=== PATIENT | male | born 1975 | race Hispanic/Latino ===

== ENCOUNTER 2024-04-18 23:05 | Emergency (ER) | payer SELFPAY ==
[2024-04-18] MEDS ORDERED: ONDANSETRON 4 MG/2 ML VIAL ONE (23:33)
[2024-04-18] MEDS ORDERED: METOCLOPRAMIDE 10 MG/2mL INJ ONE (23:34)
[2024-04-18] MEDS ORDERED: MORPHINE 4 MG/ML SYR ONE (23:34)
[2024-04-18] MEDS ORDERED: NA CHLORIDE 0.9% 2,000 ML ONE (23:34)
[2024-04-19 00:01] LABS: Absolute Eosinophils 0.1 K/uL (0-0.5); Absolute Lymphocytes (CBC) 1.9 K/uL (0.7-4.9); Absolute Monocytes 0.4 K/uL (0.1-1.3); Basophils % 0.5 % (0-1.3); Eosinophils % 1.2 % (0-4.4); Hematocrit 41.3 % (39.6-49.0); Hemoglobin 13.8 g/dL (13.6-17.9); Lymphocytes % 43.1 % (15.3-44.8); MCH 30.7 pg (27.0-35.0); MCHC 33.3 g/dL (32.0-36.0); MCV 92.2 fL (80-100); MPV 8.9 fL (7.6-11.3); Monocytes % 8.3 % (3.3-12.3); Neutrophils % 46.9 % (41.7-73.7); Platelets 167 thou/uL (152-406); RBC Red Blood Cell Count 4.48 M/uL (4.33-5.43); Red Cell Distribution Width 13.6 % (12.1-15.2)
[2024-04-19 00:18] LABS: Albumin 3.9 g/dL (3.4-5.0); Albumin/Globulin Ratio 1.2 (1.1-1.8); Anion Gap 4.6 mEq/L (5.0-15.0); Bilirubin Total 0.4 mg/dL (0.2-1.0); Globulin 3.3 g/dL (2.3-3.5); Potassium 3.6 mEq/L (3.5-5.1); Protein, Total 7.2 g/dL (6.4-8.2)
[2024-04-19 00:21] LABS: Troponin High Sensitivity 3.6 pg/mL (<58.9)
[2024-04-19 00:49] LABS: Barbiturates NEGATIVE (NEGATIVE); Benzodiazepines NEGATIVE (NEGATIVE); Cocaine NEGATIVE (NEGATIVE); METHAMPHETAM NEGATIVE (NEGATIVE); Methadone NEGATIVE (NEGATIVE); Opiates NEGATIVE (NEGATIVE); Phencyclidine NEGATIVE (NEGATIVE); Specific Gravity 1.006 (1.005-1.030); Sqamous Epithelial None Seen /HPF (None Seen); THC Cannibis NEGATIVE (NEGATIVE); Urine Bacteria None Seen /HPF (<20); Urine Bilirubin NEGATIVE (Negative); Urine Blood Negative (Negative); Urine Clarity Clear (Clear); Urine Color Colorless (Yellow); Urine Crystals Unidentified Few /HPF (None Seen); Urine Culture Reflex Order NOT NEEDED; Urine Glucose NEGATIVE (Negative); Urine Ketones NEGATIVE (Negative); Urine Microscopic Reflex YN ORDER UMIC; Urine Nitrite NEGATIVE (Negative); Urine Protein NEGATIVE (Negative); Urine RBC <5 /HPF (None Seen); Urine Urobilinogen Normal (Normal); Urine WBC None Seen /HPF (<5); Urine pH 7.5 (5.0-7.0)
[2024-04-19 01:11] LABS: SARS-CoV-2 Antigen CONTROL BLUE LINE VIS/BG OK; SARS-CoV-2 Antigen Rapid Res Negative (Negative)
[2024-04-19] MEDS ORDERED: BISACODYL E.C. 5 MG TAB PO ONE (02:48)
[2024-04-19] MEDS ORDERED: AZITHROMYCIN 250 MG TAB ONE (02:48)
--- NOTE | 2024-04-19 03:17 | EDPHYS ---
Physician Documentation [facility] Name: Atul Medrano Age: 48 yrs Sex: Male : 1975 Arrival Date: 04/18/2024 Time: 23:05 Bed 5 Private MD: ED Physician Alejo Allen HPI: 04/18 23:10 This 48 yrs old Male presents to ER via Unassigned with complaints of sp4 Abdominal Pain, Nausea/Vomiting. 04/19 06:07 This patient presents with complaint of feeling unwell for the past 6 months. Patient sp4 reports sporadic vomiting abdominal pains constipation and sporadic fevers. All this started 6 months ago. Patient has not had comprehensive evaluation. Patient reports he has resided in the [facility] since he immigrated here 5 years ago. From [facility]. Historical: - Allergies: 04/18 23:36 No Known Allergies; vc1 - Home Meds: 23:36 None [Active]; vc1 - PMHx: 23:36 None; vc1 - PSHx: 23:36 None; vc1 - Immunization history:: Client reports receiving the 2nd dose of the Covid vaccine. - Infectious Disease History:: Denies. - Social history:: Smoking status: Patient denies any tobacco usage or history of. Patient uses alcohol, occasionally. - Family history:: not pertinent. ROS: 04/19 06:07 Constitutional: Positive subjective fevers, nausea or vomiting, positive abdominal sp4 pains, positive constipation. All other systems are negative, Exam: 06:07 Constitutional: This is a well developed, well nourished patient who is awake, alert, sp4 and in no acute distress. Head/Face: Normocephalic, atraumatic. Eyes: Pupils equal round and reactive to light, extra-ocular motions intact. Lids and lashes normal. Conjunctiva and sclera are not injected. Cornea within normal limits. Periorbital areas with no swelling, redness, or edema. ENT: Nares patent. No nasal discharge, no septal abnormalities noted. Tympanic membranes are normal and external auditory canals are clear. Oropharynx with no redness, swelling, or masses, exudates, or evidence of obstruction, uvula midline. Mucous membranes moist. Neck: Trachea midline, no thyromegaly or masses palpated, and no cervical lymphadenopathy. Supple, full range of motion without nuchal rigidity, or vertebral point tenderness. Chest/axilla: Normal chest wall appearance and motion. Nontender with no deformity. No lesions are appreciated. Cardiovascular: Regular rate and rhythm with a normal S1 and S2. No gallops, murmurs, or rubs. Normal PMI, no JVD. No pulse deficits. Respiratory: Lungs have equal breath sounds bilaterally, clear to auscultation and percussion. No rales, rhonchi or wheezes noted. No increased work of breathing, no retractions or nasal flaring. Abdomen/GI: Soft, with normal bowel sounds. No distension or tympany. No guarding or rebound. No evidence of tenderness throughout. Back: No spinal tenderness. No costovertebral tenderness. Skin: Warm, dry with normal turgor. Normal color with no rashes, no lesions, and no evidence of cellulitis. MS/ Extremity: Pulses equal, no cyanosis. Neurovascular intact. Full, normal range of motion. Neuro: Awake and alert, GCS 15, oriented to person, place, time, and situation. Cranial nerves II-XII grossly intact. Motor strength 5/5 in all extremities. Sensory grossly intact. Psych: Awake, alert, with orientation to person, place and time. Behavior, mood, and affect are within normal limits Vital Signs: 04/18 23:29 BP 132 / 82; Pulse 59; Resp 14; Temp 98.4; Pulse Ox 99% ; Weight 81.65 kg; Height 5 ft. vc1 10 in. ; Pain 8/10; 04/19 00:00 BP 113 / 68; Pulse 62; Resp 16 S; Pulse Ox 98% on R/A; jw7 01:00 BP 111 / 70; Pulse 65; Resp 17; Pulse Ox 99% ; jj7 02:00 BP 107 / 70; Pulse 54; Resp 17; Pulse Ox 100% ; jj7 03:00 BP 115 / 71; Pulse 54; Resp 16 S; Pulse Ox 100% on R/A; jw7 04/18 23:29 Body Mass Index 25.20 (81.65 kg, 180 cm) vc1 04/18 23:29 Pain Scale: Adult vc1 [place] Coma Score: 06:07 Eye Response: spontaneous(4). Motor Response: obeys commands(6). Verbal Response: sp4 oriented(5). Total: 15. MDM: 04/18 23:22 Patient medically screened. sp4 04/19 02:40 ED course: IMPRESSION: 1. Focal patchy opacity within the posterior left lower lobe sp4 (atelectasis and/or early infiltrate). 2. 5 mm right upper lobe nodule. Per Fleischner Society Guidelines, if patient is low risk for malignancy, no routine follow-up imaging is recommended. If patient is high risk for malignancy, a non-contrast Chest CT at 12 months is optional. If performed and the nodule is stable at 12 months, no further follow-up is recommended. These guidelines do not apply to immunocompromised patients and patients with cancer. Follow up in patients with significant comorbidities as clinically warranted. For lung cancer screening, adhere to Lung-RADS guidelines. Reference: Radiology. 2017; 284(1):228-43. 3. Moderate stool. Multiple areas of small bowel stasis in the central and right abdomen without definite obstruction. 4. Other findings as above. Electronically signed by: Yue Christie MD 04/19/2024 02:31 . 06:09 Differential diagnosis: Nonspecific abd pain, gastritis, diverticulitis, viral sp4 gastroenteritis, gastroenteritis. Data reviewed: vital signs, nurses notes, lab test result(s), radiologic studies, CT scan. Consideration of Admission/Observation Escalation of care including admission/observation considered. ED course: CT scan of aVL incidental finding left lower lung infiltrate, also 5 mm right upper lung nodule, also significant constipation, without obstruction, patient stable for discharge home at this time. Advised to see service attendant for evaluation symptoms of abdominal pain and acid reflux.. 04/18 23:12 Order name: CBC with Diff; Complete Time: 02:18 [facility] 04/18 23:12 Order name: CMP; Complete Time: 02:18 [facility] 04/18 23:12 Order name: Lipase; Complete Time: 02:18 [facility] 04/18 23:12 Order name: Urinalysis w/ reflexes; Complete Time: 02:18 4 04/18 23:21 Order name: Urine Drug Screen; Complete Time: 02:18 4 04/18 23:21 Order name: SARS RAPID; Complete Time: 02:18 [facility] 04/18 23:21 Order name: Influenza Screen (a \T\ B); Complete Time: 02:18 sp4 04/18 23:22 Order name: AMMONIA; Complete Time: 02:18 sp4 04/18 23:23 Order name: Troponin High Sensitivity; Complete Time: 02:18 sp4 04/19 00:00 Order name: NT PRO-BNP; Complete Time: 02:18 EDMS 04/18 23:22 Order name: CT Chest, Abdomen, Pelvis - W/Contrast sp4 04/18 23:12 Order name: IV Saline Lock; Complete Time: 00: sp4 04/18 23:12 Order name: Labs collected and sent; Complete Time: 00: sp4 04/18 23:22 Order name: Accucheck Blood Glucose; Complete Time: 00: sp4 Administered Medications: 00:13 Drug: Ondansetron IVP 4 mg IVP once; over 2 minutes Route: IVP; Site: right antecubital; 02:58 Follow up: Response: No adverse reaction; Marked relief of symptoms; Nausea is decreased 00:13 Drug: NS 0.9% IV 1000 ml IV at 1 bolus Per protocol; 1000 mL bolus Route: IV; Rate: 1 jw7 bolus; Site: right antecubital; :59 Follow up: Response: No adverse reaction; IV Status: Completed infusion; IV Intake: jw7 1000ml 00:13 Drug: NS 0.9% IV 1000 ml IV at 125 ml/hr continuous Route: IV; Rate: 125 ml/hr; Site: [facility] right antecubital; 03: Follow up: Response: No adverse reaction; IV Status: Completed infusion; IV Intake: jw7 400ml 00:13 Drug: metoCLOPramide IVP 10 mg IVP once; over 1 to 2 minutes Route: IVP; Site: right [facility] antecubital; :59 Follow up: Response: No adverse reaction; Marked relief of symptoms; Nausea is decreased 00:13 Drug: morphine IVP or IV 4 mg IVP once over 4 mins Route: IVP; Infused Over: 4 mins; jw7 Site: right antecubital; :59 Follow up: Response: No adverse reaction; Marked relief of symptoms; Pain is decreased 02:58 Drug: AZITHromycin PO 500 mg PO once Route: PO; jw7 03:26 Follow up: Response: No adverse reaction 02:58 Drug: Dulcolax PO Delayed Release Tablet 10 mg PO once Route: PO; jw7 03:26 Follow up: Response: No adverse reaction jw7 03:26 Drug: Pantoprazole PO 40 mg PO once Route: PO; jw7 03:26 Follow up: Response: No adverse reaction; Medication administered at discharge. jw7 Disposition Summary: 04/19/24 03:16 Discharge Ordered Notes: Location: Home sp4 Problem: new sp4 Symptoms: have improved sp4 Condition: Stable sp4 Diagnosis - Constipation sp4 - Right upper lung pulmonary nodule, left lower lung opacity and pneumonia, nausea sp4 and vomiting, constipation, acid reflux - Gastroesophageal reflux disease sp4 Followup: sp4 - With: Silas Johnson MD - When: 7 - 10 days - Reason: Recheck today's complaints Discharge Instructions: - Discharge Summary Sheet sp4 - Gastroesophageal Reflux Disease, Adult, [id number] sp4 Forms: - Patient Portal Instructions sp4 Prescriptions: - Dulcolax (bisacodyl) 5 mg Oral tablet, delayed release (enteric coated) - take 1 tablet ORAL route every morning PRN constipation; 30 tablet; Refills: 0, sp4 Product Selection Permitted - omeprazole 40 mg Oral capsule,delayed release (e.c.) - take 1 capsule ORAL route daily; 30 capsule; Refills: 0, Product Selection sp4 Permitted - Zithromax Z-Braxton 250 mg Oral Tablet - take 1 tablet ORAL route as directed for 5 days Day 1 - take two (2) tablets sp4 one time. Day 2, 3, 4 , 5 take one (1) tablet once daily.; 6 tablet; Refills: 0, Product Selection Permitted - ondansetron 8 mg Oral Tablet,disintegrating - take 1 tablet ORAL route every 8 hours PRN nausea; 30 tablet; Refills: 0, sp4 Product Selection Permitted Signatures: [facility]patcher [facility] EDMS Zabrina Guillen RN RN vc1 Laure Qureshi RN RN jw7 Alejo Allen MD MD sp4 Corrections: (The following items were deleted from the chart) 04/18 23:12 23:12 CBC+H.LAB.BRZ ordered. EDMS EDMS 23:12 23:12 COMPREHENSIVE METABOLIC PANEL+C.LAB.BRZ ordered. EDMS EDMS 23:12 23:12 LIPASE+C.LAB.BRZ ordered. EDMS EDMS 23:12 23:12 Urinalysis+U.LAB.BRZ ordered. EDMS EDMS 23: 23:22 HEMOGLOBIN A1C+CHEM A1C.LAB.BRZ ordered. EDMS EDMS 23: 23:22 URINE DRUG SCREEN+UC.LAB.BRZ ordered. EDMS EDMS 23:22 23:22 SARS-COV-2 Antigen Rapid+I.LAB.BRZ ordered. EDMS EDMS 23: 23:22 Influenza Screen (A \T\ B)+BA.LAB.BRZ ordered. EDMS EDMS 04/19 00:00 04/18 23:22 PROBNP+C.LAB.BRZ ordered. EDMS EDMS
--- NOTE | 2024-04-19 03:17 | ER ---
Nurse's Notes [facility] Name: Atul Medrano Age: 48 yrs Sex: Male : 1975 Arrival Date: 04/18/2024 Time: 23:05 Bed 5 Private MD: Diagnosis: Constipation;Right upper lung pulmonary nodule, left lower lung opacity and pneumonia, nausea and vomiting, constipation, acid reflux;Gastroesophageal reflux disease Presentation: 04/18 23:29 Chief complaint: Friend and/or Co-Worker states: He has had stomach pain, vomiting, vc1 fever and gas for 5 days. Unable to have a bowel movement and can not eat. Coronavirus screen: Vaccine status: Patient reports receiving the 2nd dose of the covid vaccine. Client denies travel out of the [place] in the last 14 days. fever, nausea, vomiting. Ebola Screen: Patient negative for fever greater than or equal to 101.5 degrees Fahrenheit, and additional compatible Ebola Virus Disease symptoms Patient denies exposure to infectious person. Patient denies travel to an Ebola-affected area in the 21 days before illness onset. No symptoms or risks identified at this time. Initial Sepsis Screen: Does the patient meet any 2 criteria? No. Patient's initial sepsis screen is negative. Does the patient have a suspected source of infection? No. Patient's initial sepsis screen is negative. Risk Assessment: Do you want to hurt yourself or someone else? Patient reports no desire to harm self or others. Onset of symptoms was April 13, 2024. 23:29 Method Of Arrival: Ambulatory vc1 23:29 Acuity: BLANCHE 3 vc1 Triage Assessment: 23:39 General: Appears in no apparent distress. uncomfortable, ill, slender, Behavior is vc1 calm, cooperative, appropriate for age. Pain: Complains of pain in epigastric area, right upper quadrant and left upper quadrant Pain radiates to anterior aspect of left lateral abdomen and anterior aspect of right lateral abdomen Pain currently is 8 out of 10 on a pain scale. Quality of pain is described as sharp, Pain began suddenly, Is continuous, Aggravated by eating, drinking, Noted to be grimacing, Also complains of nausea, vomiting. Neuro: Level of Consciousness is awake, alert, obeys commands, Oriented to person, place, time, situation, Appropriate for age. Cardiovascular: Patient's skin is warm and dry. Respiratory: Airway is patent Respiratory effort is even, unlabored, Respiratory pattern is regular, symmetrical. GI: Abdomen is flat, non-distended, Reports constipation, intolerance of fluids, intolerance of food, nausea, vomiting. : Reports voiding less. Derm: Skin is intact, is healthy with good turgor, Skin is dry, Skin is normal, Skin temperature is warm. Musculoskeletal: No deficits noted. No signs and/or symptoms reported regarding the musculoskeletal system. Historical: - Allergies: 23:36 No Known Allergies; vc1 - Home Meds: 23:36 None [Active]; vc1 - PMHx: 23:36 None; vc1 - PSHx: 23:36 None; vc1 - Immunization history:: Client reports receiving the 2nd dose of the Covid vaccine. - Infectious Disease History:: Denies. - Social history:: Smoking status: Patient denies any tobacco usage or history of. Patient uses alcohol, occasionally. - Family history:: not pertinent. Screenin:37 [facility] ED Fall Risk Assessment (Adult) History of falling in the last 3 months, vc1 including since admission No falls in past 3 months (0 pts) Confusion or Disorientation No (0 pts) Intoxicated or Sedated No (0 pts) Impaired Gait No (0 pts) Mobility Assist Device Used No (0 pt) Altered Elimination No (0 pt) Score/Fall Risk Level 0 - 2 = Low Risk Oriented to surroundings, Maintained a safe environment, Educated pt \T\ family on fall prevention, incl call for assistance when getting out of bed. Abuse screen: Denies threats or abuse. Nutritional screening: No deficits noted. Tuberculosis screening: No symptoms or risk factors identified. Assessment: 23:50 General: Appears in no apparent distress. comfortable, Behavior is calm, cooperative, jw7 appropriate for age. Pain: Complains of pain in abdomen Pain does not radiate. Pain currently is 8 out of 10 on a pain scale. Quality of pain is described as throbbing, Pain began gradually, Is continuous. Neuro: Level of Consciousness is awake, alert, obeys commands, Oriented to person, place, time, situation, Appropriate for age. Cardiovascular: Capillary refill < 3 seconds Patient's skin is warm and dry. Respiratory: Airway is patent Trachea midline Respiratory effort is even, unlabored, Respiratory pattern is regular, symmetrical. GI: Abdomen is flat, non-distended, Bowel sounds present X 4 quads. Abd is soft and non tender X 4 quads. : No deficits noted. No signs and/or symptoms were reported regarding the genitourinary system. EENT: No deficits noted. No signs and/or symptoms were reported regarding the EENT system. Derm: Skin is intact, is healthy with good turgor, Skin is dry, Skin is normal, Skin temperature is warm. Musculoskeletal: Circulation, motion, and sensation intact. Range of motion: intact in all extremities. 04/19 01:00 Reassessment: Patient appears in no apparent distress at this time. No changes from [facility] previously documented assessment. Patient and/or family updated on plan of care and expected duration. Pain level reassessed. Patient is alert, oriented x 3, equal unlabored respirations, skin warm/dry/pink. 02:00 Reassessment: Patient appears in no apparent distress at this time. Patient and/or jw7 family updated on plan of care and expected duration. Pain level reassessed. Patient is alert, oriented x 3, equal unlabored respirations, skin warm/dry/pink. Patient states symptoms have improved. 03:00 Reassessment: Patient appears in no apparent distress at this time. No changes from [facility] previously documented assessment. Patient and/or family updated on plan of care and expected duration. Pain level reassessed. Patient is alert, oriented x 3, equal unlabored respirations, skin warm/dry/pink. Vital Signs: 04/18 23:29 BP 132 / 82; Pulse 59; Resp 14; Temp 98.4; Pulse Ox 99% ; Weight 81.65 kg; Height 5 ft. vc1 10 in. ; Pain 8/10; 04/19 00:00 BP 113 / 68; Pulse 62; Resp 16 S; Pulse Ox 98% on R/A; jw7 01:00 BP 111 / 70; Pulse 65; Resp 17; Pulse Ox 99% ; jj7 02:00 BP 107 / 70; Pulse 54; Resp 17; Pulse Ox 100% ; jj7 03:00 BP 115 / 71; Pulse 54; Resp 16 S; Pulse Ox 100% on R/A; jw7 04/18 23:29 Body Mass Index 25.20 (81.65 kg, 180 cm) vc1 04/18 23:29 Pain Scale: Adult vc1 [place] Coma Score: 06:07 Eye Response: spontaneous(4). Motor Response: obeys commands(6). Verbal Response: sp4 oriented(5). Total: 15. ED Course: 04/18 23:07 Patient arrived in ED. im 23:10 Alejo Allen MD is Attending Physician. sp4 23:36 Triage completed. vc1 23:37 Arm band placed on left wrist. vc1 23:38 Patient has correct armband on for positive identification. Bed in low position. Call vc1 light in reach. Pulse ox on. NIBP on. 04/19 00:00 Door closed. Noise minimized. Warm blanket given. jw7 00:00 Provided Education on: Use of Call Light. jw7 00:00 Initial lab(s) drawn, by me, sent to lab. Urine collected: clean catch specimen, jw7 cloudy. Inserted saline lock: 20 gauge in right antecubital area, using aseptic technique. Blood collected. 00:12 COVID swab sent to lab. Flu and/or RSV swab sent to lab. jw7 00:30 Assisted to bathroom. jw7 00:53 CT Chest, Abdomen, Pelvis - W/Contrast In Process Unspecified. EDMS 02:00 Assisted to bathroom. jw7 03:15 Silas Johnson MD is Referral Physician. sp4 03:27 No provider procedures requiring assistance completed. IV discontinued, intact, jw7 bleeding controlled, No redness/swelling at site. Pressure dressing applied. Administered Medications: 00:13 Drug: Ondansetron IVP 4 mg IVP once; over 2 minutes Route: IVP; Site: right antecubital;jw7 02:58 Follow up: Response: No adverse reaction; Marked relief of symptoms; Nausea is decreasedjw7 00:13 Drug: NS 0.9% IV 1000 ml IV at 1 bolus Per protocol; 1000 mL bolus Route: IV; Rate: 1 jw7 bolus; Site: right antecubital; 02:59 Follow up: Response: No adverse reaction; IV Status: Completed infusion; IV Intake: jw7 1000ml 00:13 Drug: NS 0.9% IV 1000 ml IV at 125 ml/hr continuous Route: IV; Rate: 125 ml/hr; Site: jw7 right antecubital; 03:26 Follow up: Response: No adverse reaction; IV Status: Completed infusion; IV Intake: jw7 400ml 00:13 Drug: metoCLOPramide IVP 10 mg IVP once; over 1 to 2 minutes Route: IVP; Site: right jw7 antecubital; 02:59 Follow up: Response: No adverse reaction; Marked relief of symptoms; Nausea is decreasedjw7 00:13 Drug: morphine IVP or IV 4 mg IVP once over 4 mins Route: IVP; Infused Over: 4 mins; jw7 Site: right antecubital; 02:59 Follow up: Response: No adverse reaction; Marked relief of symptoms; Pain is decreased jw7 02:58 Drug: AZITHromycin PO 500 mg PO once Route: PO; jw7 03:26 Follow up: Response: No adverse reaction jw7 02:58 Drug: Dulcolax PO Delayed Release Tablet 10 mg PO once Route: PO; jw7 03:26 Follow up: Response: No adverse reaction jw7 03:26 Drug: Pantoprazole PO 40 mg PO once Route: PO; jw7 03:26 Follow up: Response: No adverse reaction; Medication administered at discharge. jw7 Medication: 04/18 23:38 VIS not applicable for this client. vc1 Intake: 04/19 02:59 IV: 1000ml; Total: 1000ml. jw7 03:26 IV: 400ml; Total: 1400ml. jw7 Outcome: 03:16 Discharge ordered by MD. griffith 03:27 Discharged to home ambulatory, jw7 03:27 Condition: stable 03:27 Discharge instructions given to patient, Instructed on discharge instructions, follow up and referral plans. medication usage, Demonstrated understanding of instructions, follow-up care, medications, Prescriptions given X 4, 03:29 Patient left the ED. jw7 Signatures: Dispatcher [employer] EDMS Zabrina Guillen RN RN vc1 Laure Qureshi RN RN jw7 Krish Alan RN RN jjAlejo Lundberg MD MD sp4 Mendoza, Itzel
[2024-04-19] MEDS ORDERED: PANTOPRAZOLE 40MG TABLET PO ONE (03:21)
[2024-04-19 03:41] VITALS: BP 115/71; TEMP 98.4; O2SAT 100
--- NOTE | 2024-04-19 12:11 | RAD REPORT ---
EXAM DESCRIPTION: CT - Chest Abdomen Pelvis W Cont - 04/19/2024 6:09 am CLINICAL HISTORY: Abdominal pain TECHNIQUE: Axial computed tomography images of the chest, abdomen and pelvis with intravenous contra st. Sagittal and coronal reformatted images were created and reviewed. This CT exam was performed using one or more of the following dose reduction techniques: automated exposure control, adjustme nt of the mA and/or kV according to patient size, and/or use of iterative reconstruction technique. COMPARISON: No relevant prior studies available. FINDINGS: CHEST: Lungs: 5 mm posterior right upper lobe nodule (series 201 image 35 series 204 image 49). Focal patc hy opacity within the posterior left lower lobe. Pleural space: Unremarkable. No significant effusion. No pneumothorax. Heart: Unremarkable. No cardiomegaly. No significant pericardial effusion. No significant cor onary artery calcifications. ABDOMEN: Liver: Unremarkable. No mass. Gallbladder and bile ducts: Unremarkable. No calcified stones. No ductal dilation. Pancreas: Unremarkable. No ductal dilation. No mass. Spleen: Unremarkable. No splenomegaly. Adrenals: Unremarkable. No mass. Kidneys and ureters: Unremarkable. No hydronephrosis. No solid mass. Stomach and bowel: Moderate stool. Multiple areas of small bowel stasis in the central and right ab domen. No obstruction. Colonic diverticula without adjacent inflammatory change. No mucosal thick ening. PELVIS: Appendix: Normal caliber appendix. No findings to suggest acute appendicitis. Bladder: Unremarkable. No mass. Reproductive: Unremarkable as visualized. CHEST, ABDOMEN and PELVIS: Intraperitoneal space: Unremarkable. No significant fluid collection. No free air. Bones/joints: Mild multilevel spondylosis. No acute fracture. No dislocation. Soft tissues: Unremarkable. Vasculature: Unremarkable. No aortic aneurysm. Lymph nodes: Unremarkable. No enlarged lymph nodes. IMPRESSION: 1. Focal patchy opacity within the posterior left lower lobe (atelectasis and/or early infiltrate). 2. 5 mm right upper lobe nodule. Per Fleischner Society Guidelines, if patient is low risk for [place] gnancy, no routine follow-up imaging is recommended. If patient is high risk for malignancy, a non-co ntrast Chest CT at 12 months is optional. If performed and the nodule is stable at 12 months, no furt her follow-up is recommended. These guidelines do not apply to immunocompromised patients and patient s with cancer. Follow up in patients with significant comorbidities as clinically warranted. For lung cancer screening, adhere to Lung-RADS guidelines. Reference: Radiology. 2017; 284(1):228-43. 3. Moderate stool. Multiple areas of small bowel stasis in the central and right abdomen without de finite obstruction. 4. Other findings as above. Electronically signed by: Yue Christie MD 04/19/2024 02:31 AM CDT RP Due to temporary technical issues with the PACS/Fluency reporting system, reports are being signed by the in house radiologist without review as a courtesy to ensure prompt reporting. The interpreting r adiologist is fully responsible for the content of the report.
== END 2024-04-19 03:29 | disposition home or self-care (01) ==
LOC: ER 23:05
DX: K59.00 Constipation, unspecified (principal); K21.9 Gastro-esophageal reflux disease without esophagitis; R11.2 Nausea with vomiting, unspecified; J18.9 Pneumonia, unspecified organism; R91.1 Solitary pulmonary nodule
CPT/HCPCS: 36415; 71260; 74177; 80053; 80307; 81001; 82140; 83690; 83880; 84484; 85025; 87804; 87811; 96361; 96374; 96375; 99284; J2405; J2765; J7030; Q9967